=== PATIENT | female | born 1955 | race Caucasian/White ===

== ENCOUNTER → 2016-06-18 | Outpatient (CLI) | payer OTHER | LOC: BMCIMAGING 07:43 | DX: Z12.31 Encounter for screening mammogram for malignant neoplasm of breast (principal) | CPT/HCPCS: G0202 ==

== ENCOUNTER 2017-01-15 19:00 | Emergency (ER) | payer OTHER ==
--- NOTE | 2017-01-15 19:03 | EDPHY ---
H & P Time Seen by Provider: 01/15/17 19:02 HPI/ROS: CHIEF COMPLAINT: Mechanical fall, chest bruising, back spasm HISTORY OF PRESENT ILLNESS: The patient presents to the ED for evaluation of the chest pain, back spasms and the left shoulder pain which began after a mechanical fall on Thursday. The patient fell approximately 2 feet landing on her right breast. She did not strike her head or lose consciousness. The patient has been attempting to manage her symptoms with ibuprofen however has developed fairly significant spasm in her back and ribs over the past day. The patient does have a history of coronary artery disease and is status post stenting. She reports that she feels etiology for pain is not cardiac but musculoskeletal in nature. She denies any acute headache, cervical spine pain, abdominal pain or extremity complaints. The patient reports her symptoms are spasmodic in nature and worsened with palpation and movement. REVIEW OF SYSTEMS: A comprehensive 10 point review of systems is otherwise negative aside from elements mentioned in the history of present illness. Source: Patient Exam Limitations: No limitations - Medical/Surgical History Hx Asthma: No Hx Chronic Respiratory Disease: No Hx Diabetes: Yes Hx Cardiac Disease: Yes Hx Renal Disease: No Hx Cirrhosis: No Hx Alcoholism: No Hx HIV/AIDS: No Hx Splenectomy or Spleen Trauma: No Other PMH: LAD STENT 2006, NECK FUSION 2009, ulnar nerve transposition SURGERY, HYPERTENSION. ROTATOR CUFF SURG. - Social History Smoking Status: Never smoked - Physical Exam Exam: General Appearance: Alert, no distress Head: Atraumatic Eyes: Pupils equal, round, reactive ENT, Mouth: No hemotympanum, no oral trauma Neck: Nontender, trachea midline Respiratory: Bruising and ecchymosis noted to the right anterior breast, no subcutaneous emphysema, tenderness to palpation throughout the left anterior chest wall Cardiovascular: Regular rate and rhythm Abdomen: Abdomen is soft and nontender, pelvis stable Skin: No lacerations, No abrasion Back: No midline T/L/S pain, tenderness to palpation predominantly along the left paraspinal musculature Extremities: Nontender, full range of motion Neurological: A&Ox3, normal motor function, normal sensory exam Constitutional: Initial Vital Signs Temperature (C) 37.2 C 01/15/17 19:01 Heart Rate 81 01/15/17 19:01 Respiratory Rate 18 01/15/17 19:01 Blood Pressure 149/98 H 01/15/17 19:01 O2 Sat (%) 93 01/15/17 19:01 O2 Delivery Mode Room Air O2 (L/minute) 2 Allergies/Adverse Reactions: atorvastatin calcium [From Lipitor] Allergy (Verified 01/10/15 10:20) BROWN URINE/ BACK PAIN Home Medications: Medication Instructions Recorded Ascorbic Acid [Vitamin C 500 mg 500 mg PO HS 03/28/13 (OTC)] Aspirin [Aspirin 325 mg (OTC)] 325 mg PO HS 03/28/13 Cholecalciferol Vit D3 [Vitamin D3 2,000 units PO HS 03/28/13 2000 units (OTC)] Herbals/Supplements -Info Only 1 unit PO AD 03/28/13 Lisinopril/Hctz 20/12.5MG 1 tab PO BID 03/28/13 [Zestoretic/Prinzide 20/12.5MG (*)] Metoprolol Succinate Xr [Toprol Xl 100 mg PO HS 03/28/13 100 mg (RX)] Multivitamins [Tab-A-Toy] 1 each PO DAILY 03/28/13 [place]-3 Fatty Acids [Fish Oil 1000 1,000 mg PO BID 03/28/13 mg (OTC)] amLODIPine BESYLATE [Norvasc] 10 mg PO DAILY 03/28/13 metFORMIN HCL [Glucophage] 1,000 mg PO BIDMEAL 03/28/13 Dulaglutide [Trulicity] 0.75 mg SQ MO@09 01/10/15 Empagliflozin [Jardiance] 10 mg PO DAILY 01/10/15 Insulin Glargine [Lantus 100 56 units SC DAILY@1300 01/10/15 UNITS/ML (RX)] Rosuvastatin Calcium [Crestor] 20 mg PO HS 01/10/15 Vitamin B Complex [B Complex] 1 each PO HS 01/10/15 HYDROcodone/APAP 10/325 [[place] 2 tab PO Q6 PRN #90 tab 01/17/15 10/325 (*)] Cyclobenzaprine [Flexeril 10 MG 10 mg PO TID PRN #15 tab 01/15/17 (*)] Hydrocodone/APAP 5/325 [[place] 1 - 2 each PO Q6 PRN #20 tab 01/15/17 5/325] Medical Decision Making - Diagnostics EKG Interpretation: EKG: Complete interpretation has been separately recorded in the [facility] archive. Summary impression: Sinus rhythm, rate 77, no ST segment elevation or depression. Imaging Results: Imaging Impressions Chest X-Ray 01/15/17 19: Impression: Moderate airways disease. Otherwise nothing acute. ED Course/Re-evaluation: The patient presents to the ED with complaints of musculoskeletal chest and back pain after fall several days ago. The patient does have a history of coronary artery disease but does not report anterior chest pain. Her EKG demonstrates no evidence of ischemia. Her physical examination is suggestive of a contusion with myofascial spasm and strain. The patient had an IV established. She received 1 mg of IV Ativan and 30 mg of IV Toradol. A chest x-ray was obtained and reviewed by myself which demonstrates no evidence of an obvious rib fracture or pneumothorax. She does have a small area of contusion on her right breast without evidence of significant hematoma. The patient was re-evaluated at 9:00 p.m.. She is feeling better after receiving Ativan and Toradol. She will be discharged home with a prescription for Flexeril and advised to continue to take NSAIDs. She is given a prescription for [place] for severe pain. The patient has no evidence of obvious ACS based upon her troponin testing you EKG. Her physical exam demonstrates a diagnosis consistent with musculoskeletal pain. She has been instructed to return to the ED immediately for any chest pain, difficulty breathing, worsening symptoms or other concerns. Differential Diagnosis: Differential diagnosis considered includes rib fracture, chest wall contusion, pneumothorax, myofascial strain, myocardial infarction - Data Points Laboratory Results: Laboratory Results 01/15/17 19:25 01/15/17 19:25 01/15/17 01/15/17 19:25 19:25 WBC 11.27 10^3/uL H 10^3/uL (3.80-9.50) RBC 5.88 10^6/uL H 10^6/uL (4.18-5.33) Hgb 17.0 g/dL H g/dL (12.6-16.3) Hct 49.3 % H % (38.0-47.0) MCV 83.8 fL fL (81.5-99.8) MCH 28.9 pg pg (27.9-34.1) MCHC 34.5 g/dL g/dL (32.4-36.7) RDW 13.7 % % (11.5-15.2) Plt Count 251 10^3/uL 10^3/uL (150-400) MPV 10.1 fL fL (8.7-11.7) Neut % (Auto) 70.0 % % (39.3-74.2) Lymph % (Auto) 21.7 % % (15.0-45.0) [place] % (Auto) 6.5 % % (4.5-13.0) Eos % (Auto) 0.9 % % (0.6-7.6) Baso % (Auto) 0.5 % % (0.3-1.7) Nucleat RBC Rel Count 0.0 % % (0.0-0.2) Absolute Neuts (auto) 7.90 10^3/uL H 10^3/uL (1.70-6.50) Absolute Lymphs (auto) 2.44 10^3/uL 10^3/uL (1.00-3.00) Absolute Monos (auto) 0.73 10^3/uL 10^3/uL (0.30-0.80) Absolute Eos (auto) 0.10 10^3/uL 10^3/uL (0.03-0.40) Absolute Basos (auto) 0.06 10^3/uL 10^3/uL (0.02-0.10) Absolute Nucleated RBC 0.00 10^3/uL 10^3/uL (0-0.01) Immature Gran % 0.4 % % (0.0-1.1) Immature Gran # 0.04 10^3/uL 10^3/uL (0.00-0.10) Sodium 140 mEq/L mEq/L (134-144) Potassium 3.0 mEq/L L mEq/L (3.5-5.2) Chloride 104 mEq/L mEq/L (97-110) Carbon Dioxide 24 mEq/l mEq/l (22-31) Anion Gap 12 mEq/L mEq/L (8-16) BUN 15 mg/dL mg/dL (7-23) Creatinine 0.7 mg/dL mg/dL (0.6-1.0) Estimated GFR > 60 Glucose 166 mg/dL H mg/dL (70-100) Calcium 9.6 mg/dL mg/dL (8.5-10.4) Troponin I < 0.012 ng/mL ng/mL (0.000-0.034) Medications Given: Discontinued Medications Ketorolac Tromethamine (Toradol) 30 mg IVP EDNOW ONE Stop: 01/15/17 19:26 Last Admin: 01/15/17 19:39 Dose: 30 mg Lorazepam (Ativan Injection) 1 mg IVP EDNOW ONE Stop: 01/15/17 19:19 Last Admin: 01/15/17 19:42 Dose: 1 mg Departure - Departure Disposition: Home, Routine, Self-Care Clinical Impression: Contusion, breast, Spasm of thoracic back muscle Condition: Good Instructions: Musculoskeletal Pain (ED) Additional Instructions: 1. Take Ibuprofen or Motrin 600 mg by mouth three times a day. 2. Flexeril as needed for muscle relaxation 3. [place] as needed for severe pain 4. Please return to the ED immediately for any worsening symptoms, difficulty breathing, chest pain or other concerns. Referrals: Lala Pina MD [Primary Care Provider] - As per Instructions Prescriptions: Cyclobenzaprine [Flexeril 10 MG (*)] 10 mg PO TID PRN #15 tab PRN Reason: Spasms Hydrocodone/APAP 5/325 [[place] 5/325] 1 - 2 each PO Q6 PRN #20 tab PRN Reason: for pain
[2017-01-15] MEDS ORDERED: LORazepam 2 MG/ML INJ IVP ONE (19:18)
--- NOTE | 2017-01-15 19:24 | CPEKG ---
Heart Rate: 77 RR Interval: 779 P-R Interval: 168 QRSD Interval: 86 QT Interval: 420 QTC Interval: 476 P [place]: 10 QRS [place]: -27 T Wave [place]: 34 EKG Severity - ABNORMAL ECG - EKG Impression: SINUS RHYTHM Electronically Signed By: Yehuda Kaiser 15-Jan-2017 19:27:29
[2017-01-15] MEDS ORDERED: KETOROLAC 30 MG/1 ML SDV IVP ONE (19:25)
[2017-01-15 19:35] LABS: % IMMATURE GRANULYOCYTES 0.4 % (0.0-1.1); ABSOLUTE IMMATURE GRANULOCYTES 0.04 10^3/uL (0.00-0.10); ADD DIFF? NO; ADD MORPH? NO; ADD SCAN? NO; ATYPICAL LYMPHOCYTE FLAG 0 (0-99); FRAGMENT RBC FLAG 0 (0-99); HEMATOCRIT 49.3 % (38.0-47.0); LEFT SHIFT FLG 0 (0-99); LIPEMIA HEMOLYSIS FLAG 90 (0-99); MEAN CELL HEMOGLOBIN 28.9 pg (27.9-34.1); MEAN CELL HEMOGLOBIN CONCENTR. 34.5 g/dL (32.4-36.7); MEAN CELL VOLUME 83.8 fL (81.5-99.8); MEAN PLATELET VOLUME 10.1 fL (8.7-11.7); PLATELET CLUMPS FLAG 0 (0-99); PLATELET COUNT 251 10^3/uL (150-400); RED BLOOD CELL COUNT 5.88 10^6/uL (4.18-5.33); RED CELL DISTRIBUTION WIDTH 13.7 % (11.5-15.2)
[2017-01-15 19:38] VITALS: RESP 18
[2017-01-15 20:05] LABS: ANION GAP 12 mEq/L (8-16); CALCIUM 9.6 mg/dL (8.5-10.4); CARBON DIOXIDE 24 mEq/l (22-31); CHLORIDE 104 mEq/L (97-110); CREATININE 0.7 mg/dL (0.6-1.0); GLOMERULAR FILTRATION RATE > 60; GLUCOSE 166 mg/dL (70-100); SODIUM 140 mEq/L (134-144)
[2017-01-15 20:15] LABS: TROPONIN I < 0.012 ng/mL (0.000-0.034)
[2017-01-15 20:49] VITALS: BP 144/88; PULSE 78; TEMP 98.2; O2SAT 97
== END 2017-01-15 21:05 | disposition home or self-care (01) ==
DX: S20.01XA Contusion of right breast, initial encounter (principal); M62.830 Muscle spasm of back; E11.9 Type 2 diabetes mellitus without complications; I10 Essential (primary) hypertension; Z79.82 Long term (current) use of aspirin; Z79.4 Long term (current) use of insulin; Z79.84 Long term (current) use of oral hypoglycemic drugs; W18.39XA Other fall on same level, initial encounter; Y99.8 Other external cause status
CPT/HCPCS: 96374; J1885; J2060

== ENCOUNTER → 2017-08-26 | Outpatient (CLI) | payer OTHER | LOC: BMCIMAGING 14:08 | PROVIDERS: ATTEND Physician Assistant | DX: Z47.1 Aftercare following joint replacement surgery (principal); Z96.653 Presence of artificial knee joint, bilateral ==

== ENCOUNTER → 2017-12-21 | Outpatient (CLI) | payer OTHER | LOC: BMCIMAGING 09:49 | PROVIDERS: ATTEND Family Medicine | DX: R92.8 Other abnormal and inconclusive findings on diagnostic imaging of breast (principal) ==

== ENCOUNTER → 2018-08-24 | Outpatient (CLI) | payer OTHER | LOC: BMCIMAGING 15:18 | PROVIDERS: ATTEND Family Medicine | DX: R05 Cough (principal) ==

== ENCOUNTER → 2018-09-27 | Outpatient (CLI) | payer OTHER | LOC: BMCIMAGING 14:43 ==